=== PATIENT | male | born 1940 | race Caucasian/White ===

== ENCOUNTER 2018-03-29 22:16 | Emergency (ER) | payer MEDICARE ==
[~2018-03-29] VITALS: Ht 182.9 cm; Wt 72.6 kg
--- NOTE | 2018-03-29 23:22 | PCM.EKG ---
[facility] Test Date: 2018-03-29 Test Time: 23:21:14 Pat Name: PAVEL ASHER Department: Room: Gender: M Computer Teacher: REED : 1940 Requested By: EUGENE BORDEN Order Number: [id number] Reading MD: Measurements Intervals [place] Rate: 96 P: 75 [place]: 134 QRS: 77 QRSD: 96 T: 67 QT: 370 QTc: 467 Interpretive Statements Normal sinus rhythm Normal ECG No previous ECG available for comparison Please click the below link to view image of tracing.
[2018-03-29 23:29] LABS: BASOPHIL % 0.3 % (0.0-0.2); EOSINOPHIL # 0.5 10^3/uL (0.0-0.2); HEMOGLOBIN 14.6 g/dL (13.9-16.3); LYMPHOCYTES # 1.1 10^3/uL (1.0-4.8); LYMPHOCYTES % 12.1 % (24.0-44.0); MEAN CELL HGB 31.9 pg (26-34); MEAN CELL HGB CONCENTRATION 32.2 g/dL (33-37); MEAN CORP VOLUME 98.9 fL (78-100); MEAN PLATELET VOLUME 9.9 fL (7.8-11.0); MONOCYTES % 11.1 % (5.0-12.0); NEUTROPHIL # 6.6 10^3/uL (1.8-7.7); NEUTROPHILS % 71.3 % (41.0-85.0); RED CELL DISTRIBUTION WIDTH 14.7 % (11.5-14.5); WHITE BLOOD CELL 9.2 10^3/uL (4.5-11.0)
[2018-03-29 23:46] VITALS: BP 135/81
--- NOTE | 2018-03-29 23:48 | DIREP ---
PROCEDURE:CHEST 1 VIEW COMPARISON:None. INDICATIONS:congestion FINDINGS: LUNGS/PLEURA:Hyperinflation of the upper lobes and slightly prominent pulmonary markings may suggest underlying emphysema. Small right pleural fluid or scarring. Hazy opacity in the right lung base may be related to pleural fluid layering, no priors for comparison. Additionally, rounded opacity in the left lung base, may represent confluence of shadows given posterior left-sided rib fractures in this area involving 8, 9 and 10. Follow-up PA and lateral chest radiographs may be helpful when clinically appropriate. No effusions. No pneumothorax. VASCULATURE:Unremarkable pulmonary vasculature. CARDIAC:No cardiac silhouette abnormality or cardiomegaly. MEDIASTINUM:No visible mass or adenopathy. BONES:Healed left-sided rib fractures. OTHER:Negative. CONCLUSION: 1. Small right pleural fluid or scarring in the right lung base, suspect background emphysema. 2. Rounded opacity in the left lung base, please see above comments. Dictated by: aGby Hernandez MD on 03/29/2018 at 11:44 PM
[2018-03-29] MEDS ORDERED: DUONEB 0.5 MG-3 MG/3 ML SOLN IH STA (23:55)
[2018-03-29 23:56] LABS: ALANINE AMINOTRANSFERASE(ML) 16 U/L (12-78); ALKALINE PHOSPHATASE 97 U/L (50-136); ASPARTATE AMINO TRANSFERASE 18 U/L (0-35); CALCIUM 8.9 mg/dL (8.4-10.5); CARBON DIOXIDE 28.7 mmol/L (20.0-32); GLUCOSE 101 mg/dL (70-110)
[2018-03-30] MEDS ORDERED: DUONEB 0.5 MG-3 MG/3 ML SOLN IH ONE (00:11)
[2018-03-30] MEDS ORDERED: OMNICEF PO STA (00:41)
[2018-03-30] MEDS ORDERED: SOLU-MEDROL IM STA (00:41)
[2018-03-30] MEDS ORDERED: SOLU-MEDROL ONE (00:44)
--- NOTE | 2018-03-30 00:46 | ER.PDOC ---
General Chief Complaint: Cough/Congestion Stated Complaint: CONGESTION Time seen by MD: 22:29 Source: patient, family History of Present Illness Initial Comments Cough and wheezing from last 3-4 days. Denies any other symptoms. Timing/Duration: gradual Severity: mild Associated Symptoms: cough, productive cough Worsen By: deep breathing Allergies: Coded Allergies: No Known Allergies (Unverified , 10/09/14) Constitutional: no symptoms reported EENTM: no symptoms reported Respiratory: see HPI, cough, wheezing Cardiovascular: no symptoms reported Gastrointestinal: no symptoms reported Genitourinary: no symptoms reported Musculoskeletal: no symptoms reported Skin: no symptoms reported Psychiatric/Neurological: no symptoms reported Endocrine: no symptoms reported Hematologic/Lymphatic: no symptoms reported All Other Systems: Reviewed and Negative Past Medical History Medical History: coronary artery disease, high cholesterol, hypertension Surgical History: cardiac cath Family History Significant Family History: no pertinent family hx Social History Smoking: greater than 1 pack/day Alcohol Use: heavy Drug Use: none Reviewed Nursing Reviewed: Nursing Assessment Physical Exam General Appearance: alert, no distress Eye: eyes nml inspection, lids & conjunct. nml, PERRL Ear: ear nml Nose: nose nml Throat: pharynx nml Neck: nml inspection, supple Respiratory: no resp.distress, wheezes Abdomen: non-tender, no organomegaly CVS: reg rate & rhythm, heart sounds nml Skin: color nml, no rash, warm/dry Extremities: non-tender, nml ROM, no pedal edema NEURO/PSYCH: oriented x 3, motor nml, sensation nml Results/Orders Results/Orders Laboratory Tests Test 03/29/18 23:19 White Blood Count 9.2 10^3/uL (4.5-11.0) Red Blood Count 4.58 10^6/uL (4.50-5.90) Hemoglobin 14.6 g/dL (13.9-16.3) Hematocrit 45.3 % (37.0-53.0) Mean Corpuscular Volume 98.9 fL (78-100) Mean Corpuscular Hemoglobin 31.9 pg (26-34) Mean Corpuscular Hemoglobin Concent 32.2 g/dL (33-37) Red Cell Distribution Width 14.7 % (11.5-14.5) Platelet Count 288 10^3/uL (150-400) Mean Platelet Volume 9.9 fL (7.8-11.0) Neutrophils (%) (Auto) 71.3 % (41.0-85.0) Lymphocytes (%) (Auto) 12.1 % (24.0-44.0) Monocytes (%) (Auto) 11.1 % (5.0-12.0) Neutrophils # (Auto) 6.6 10^3/uL (1.8-7.7) Lymphocytes # (Auto) 1.1 10^3/uL (1.0-4.8) Monocytes # (Auto) 1.0 10^3/uL (0.3-0.8) Absolute Immature Granulocyte (auto 0.02 10^3 u/L (0-2) Eosinophils % 5.0 % (0.0-5.0) Basophils % 0.3 % (0.0-0.2) Basophils # 0.0 10^3/uL (0.0-0.1) Eosinophil Count 0.5 10^3/uL (0.0-0.2) Sodium Level 144 mmol/L (132-145) Potassium Level 3.5 mmol/L (3.6-5.2) Chloride Level 105.0 mmol/L (96-109) Carbon Dioxide Level 28.7 mmol/L (20.0-32) Anion Gap 13.8 Blood Urea Nitrogen 15 mg/dL (7-18) Creatinine 1.11 mg/dL (0.59-1.40) Estimated GFR () 77.9 (>/=60) BUN/Creatinine Ratio 13.0 Glucose Level 101 mg/dL (70-110) Calcium Level 8.9 mg/dL (8.4-10.5) Total Bilirubin 0.3 mg/dL (0.2-1.0) Aspartate Amino Transf (AST/SGOT) 18 U/L (0-35) Alanine Aminotransferase (ALT/SGPT) 16 U/L (12-78) Alkaline Phosphatase 97 U/L (50-136) Troponin I < 0.02 ng/mL (0.00-0.05) Pro-B-Type Natriuretic Peptide 171 pg/mL (0-450) Total Protein 6.7 g/dL (6.4-8.2) Albumin 3.2 g/dL (3.4-5.0) Globulin 3.5 Percent Immature Gran (Cell Imm) 0.20 % (0.00-0.50) Administered Medications Medications (Trade) Dose Ordered Sig/[place] Route PRN Reason Start Time Stop Time Status Last Admin Dose Admin Albuterol/ Ipratropium (Duoneb 0.5 Mg-3 Mg/3 ml Soln) 3 ml STAT STAT IH 03/29/18 23:55 03/29/18 23:56 DC 03/30/18 00:16 Progress Progress Labs and xrays were at baseline. Pt likely has Acute bronchitis and COPD exacerbation. Will treat with Steroids, ABX and breathing treatments. Departure Time of Disposition: 12:44 Disposition: 01 HOME, SELF-CARE Impression: Primary Impression: Acute bronchitis Additional Impression: COPD exacerbation Condition: Stable Referrals: WERO VINSON DO (PCP) PRIMARY CARE PROVIDER Duration or Time Spent with Pa: 20 Problem Qualifiers EUGENE BORDEN MD Mar 30, 2018 00:46
[2018-03-30 00:50] VITALS: BP 136/94
[2018-03-30] MEDS ORDERED: OMNICEF PO ONE (00:52)
[2018-03-30 01:14] VITALS: BP 135/81
== END 2018-03-30 01:10 | disposition home or self-care (01) ==
LOC: ER 22:16
DX: J20.9 Acute bronchitis, unspecified (principal); J44.1 Chronic obstructive pulmonary disease with (acute) exacerbation; I11.9 Hypertensive heart disease without heart failure; I25.10 Atherosclerotic heart disease of native coronary artery without angina pectoris; E78.00 Pure hypercholesterolemia, unspecified; F17.210 Nicotine dependence, cigarettes, uncomplicated
CPT/HCPCS: 36415; 71045; 80053; 83880; 84484; 85025; 93005; 94640; 96372; 99284; J2930; J7620